=== PATIENT | female | born 1970 | race Caucasian/White ===

== ENCOUNTER → 2017-03-31 | Outpatient (CLI) | payer OTHER | LOC: EMI 13:59 | DX: R51 Headache (principal); M32.9 Systemic lupus erythematosus, unspecified | CPT/HCPCS: 70553; A9576; J7050 ==

== ENCOUNTER → 2021-11-25 | Outpatient (CLI) | payer OTHER | LOC: EXRD 09:49 | DX: L03.114 Cellulitis of left upper limb (principal) | CPT/HCPCS: 73080 ==